=== PATIENT | female | born 1935 | race Caucasian/White ===

== ENCOUNTER → 2017-07-19 | Outpatient (CLI) | payer MEDICARE ==
--- NOTE | 2017-07-19 23:03 | MR ---
EXAMINATION TYPE: MR brain wo con DATE OF EXAM: 07/19/2017 COMPARISON: NONE HISTORY: Dementia without behavioral disturbance per order. Additional symptoms of headache, dizzines s, and loss of balance per order. TECHNIQUE: Multiplanar, multisequence imaging of the brain and brainstem is performed without IV cont rast. FINDINGS: Diffusion weighted images demonstrate no evidence of a recent infarct or other diffusion abnormality. There is no worrisome extra-axial fluid collection. There is ventricular and sulcal prominence consis tent with fairly moderate diffuse cerebral atrophy. There are focal confluent areas of T2 hyperintens ity seen throughout the deep and periventricular white matter. Lesions are most likely an basis of pr oduct of the proximal vessel ischemic change in patient of this age. Suspect old lacunar infarct left cerebellar hemisphere on axial image 6 Midline structures demonstrate normal morphology. The craniocervical junction appears within normal limits. Normal vascular flow voids are present. The visualized sinuses are clear and the globes are i ntact. 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
== END | disposition home or self-care (01) ==
LOC: RADMRIMAIN 15:52
PROVIDERS: ATTEND Family Medicine
DX: G31.9 Degenerative disease of nervous system, unspecified (principal); I67.82 Cerebral ischemia; F03.90 Unspecified dementia, unspecified severity, without behavioral disturbance, psychotic disturbance, mood disturbance, and anxiety
CPT/HCPCS: 70551

== ENCOUNTER → 2017-10-06 | Outpatient (CLI) | payer MEDICARE ==
--- NOTE | 2017-10-07 11:07 | US ---
EXAMINATION TYPE: US thyroid st tissue head/neck DATE OF EXAM: 10/06/2017 COMPARISON: US 09/29/2014 CLINICAL HISTORY: E21.3 Hyperparathyroidism. GLAND SIZE: Right Lobe: 5.3 x 3.2 x 2.9 cm Overall Parenchyma: heterogenous Left Lobe: 8.0 x 3.4 x 3.1cm Overall Parenchyma: heterogeneous Isthmus Thickness: 1.1 cm NODULES RIGHT: # of nodules measured on right: 2 largest are measured as multiple thyroid nodules and too n umerous to count 1. 1.8 X 2.3 x 1.6 cm hypoechoic mixed nodule at the lower pole with poorly defined margins; . Thi s nodule is wider than tall and shows intranodular vascularity. Prior size: 1.8 x 1.0 x 1.8 cm 2. 2.1 X 1.8 x 1.9 cm hypoechoic mixed nodule at the upper pole with irregular margins; with a soft tissue rim outside the calcification. This nodule is taller than wide and shows no intranodular vasc ularity. Prior size: not seen LEFT: # of nodules measured on left: 2 largest of multiple nodules 1. 1.6 X 2.0 x 2.1 cm hypoechoic mixed nodule at the lower pole with poorly defined margins; presen t with microcalcifications. This nodule is taller than wide and shows intranodular vascularity. Prior size: none measured 2. 1.7 X 1.5 x 0.9 cm hypoechoic mixed nodule at the upper pole with well-defined margins. This nodu le is wider than tall and shows intranodular vascularity. Prior size: none measured ISTHMUS: # of nodules measured in the isthmus: 0 Bilateral neck scanned, no evidence of lymphadenopathy. Enlarged thyroid gland bilaterally. Possible right inferior solid parathyroid nodule = 1.4 x 1.0 x 1.3cm IMPRESSION: Nonspecific thyroid nodularity as discussed above. Possible right parathyroid nodule. The need to bi opsy should be made on a clinical basis.
== END | disposition home or self-care (01) ==
LOC: RADUSWWP 16:46
PROVIDERS: ATTEND Family Medicine
DX: E21.3 Hyperparathyroidism, unspecified (principal)
CPT/HCPCS: 76536

== ENCOUNTER → 2017-11-13 | Outpatient (CLI) | payer MEDICARE ==
--- NOTE | 2017-11-13 15:46 | NM ---
EXAMINATION TYPE: NM parathyroid w/spect DATE OF EXAM: 11/13/2017 COMPARISON: Thyroid ultrasound October 06, 2017 HISTORY: Increased parathyroid hormone. History of adenoma. TECHNIQUE: Following administration of 24.9 mCi Tc99m Sestamibi. Anterior projection images of the neck and ches t were obtained 10 minutes and 3 hours post injection. SPECT images of the neck and chest were obtai mavis and reconstructed in three axes. FINDINGS: Thyroid tracer washout: Delayed images demonstrate near-complete tracer washout from the thyroid. Parathyroid uptake: None. The two-hour delayed images do not demonstrate any focal abnormal persisten t uptake in the region of the parathyroid glands to suggest parathyroid adenoma to correlate with rec ent ultrasound. Normal uptake: There is physiological tracer uptake in the bilateral salivary glands. IMPRESSION: Normal parathyroid imaging study. No evidence for suspicious mediastinal uptake to suggest mediastina l parathyroid adenoma
== END | disposition home or self-care (01) ==
LOC: RADNMMAIN 11:10
PROVIDERS: ATTEND Otolaryngology
DX: D35.1 Benign neoplasm of parathyroid gland (principal); E21.3 Hyperparathyroidism, unspecified
CPT/HCPCS: 78071; A9500

== ENCOUNTER 2017-11-17 12:29 | Day surgery (SDC) | payer MEDICARE ==
[2017-11-17] MEDS ORDERED: ALPRAZolam 0.25 MG TAB PO STA (13:07)
[2017-11-17 13:14] VITALS: TEMP 98.1
[2017-11-17 13:40] VITALS: PULSE 70; RESP 16
--- NOTE | 2017-11-17 15:38 | US ---
EXAMINATION TYPE: US FNA thyroid DATE OF EXAM: 11/17/2017 COMPARISON: NONE HISTORY: Thyroid nodule. Maximal barrier technique was utilized. After informed consent, skin overlying the lesion was locali zed with ultrasound and the overlying skin prepped and draped. Ultrasound was utilized using sterile technique. Lidocaine was used for local anesthesia. 4 passes with a 25-gauge needle were made into th e left lower pole nodule and aspirated specimen was submitted to cytology. Following the procedure h emostasis achieved. No immediate complication. The patient discharged in stable condition. IMPRESSION: STATUS POST ULTRASOUND GUIDED FINE NEEDLE ASPIRATION OF LEFT LOWER POLE THYROID NODULE, P ATHOLOGY IS PENDING. THIS PROCEDURE WAS PERFORMED BY THE UNDERSIGNED.
--- NOTE | 2017-11-17 15:38 | US ---
EXAMINATION TYPE: US FNA thyroid DATE OF EXAM: 11/17/2017 COMPARISON: NONE HISTORY: Thyroid nodule. Maximal barrier technique was utilized. After informed consent, skin overlying the lesion was locali zed with ultrasound and the overlying skin prepped and draped. Ultrasound was utilized using sterile technique. Lidocaine was used for local anesthesia. 4 passes with a 25-gauge needle were made into th e left upper pole nodule and aspirated specimen was submitted to cytology. Following the procedure h emostasis achieved. No immediate complication. The patient discharged in stable condition. IMPRESSION: STATUS POST ULTRASOUND GUIDED FINE NEEDLE ASPIRATION OF LEFT UPPER POLE THYROID NODULE, P ATHOLOGY IS PENDING. THIS PROCEDURE WAS PERFORMED BY THE UNDERSIGNED.
--- NOTE | 2017-11-17 15:39 | US ---
EXAMINATION TYPE: US FNA thyroid DATE OF EXAM: 11/17/2017 COMPARISON: NONE HISTORY: Thyroid nodule. Maximal barrier technique was utilized. After informed consent, skin overlying the lesion was locali zed with ultrasound and the overlying skin prepped and draped. Ultrasound was utilized using sterile technique. Lidocaine was used for local anesthesia. 1 pass with a 25-gauge needle was made into the r ight lower pole nodule and aspirated specimen was submitted to cytology. Following the procedure hem ostasis achieved. No immediate complication. The patient discharged in stable condition. IMPRESSION: STATUS POST ULTRASOUND GUIDED FINE NEEDLE ASPIRATION OF RIGHT LOWER POLE THYROID NODULE, PATHOLOGY IS PENDING. THIS PROCEDURE WAS PERFORMED BY THE UNDERSIGNED.
--- NOTE | 2017-11-17 15:40 | US ---
EXAMINATION TYPE: US FNA thyroid DATE OF EXAM: 11/17/2017 COMPARISON: NONE HISTORY: Thyroid nodule. Maximal barrier technique was utilized. After informed consent, skin overlying the lesion was locali zed with ultrasound and the overlying skin prepped and draped. Ultrasound was utilized using sterile technique. Lidocaine was used for local anesthesia. Four passes with a 25-gauge needle were made into the right upper pole nodule and aspirated specimen was submitted to cytology. Following the procedu re hemostasis achieved. No immediate complication. The patient discharged in stable condition. IMPRESSION: STATUS POST ULTRASOUND GUIDED FINE NEEDLE ASPIRATION OF RIGHT UPPER POLE THYROID NODULE, PATHOLOGY IS PENDING. THIS PROCEDURE WAS PERFORMED BY THE UNDERSIGNED.
[2017-11-17 15:52] VITALS: BP 139/70
== END 2017-11-17 14:50 | disposition home or self-care (01) ==
LOC: RADPROMAIN 12:29
PROVIDERS: ATTEND Otolaryngology
DX: E04.1 Nontoxic single thyroid nodule (principal)
CPT/HCPCS: 10022; 76942; 88173; 88305

== ENCOUNTER → 2018-05-16 | Outpatient (CLI) | payer MEDICARE ==
--- NOTE | 2018-05-16 14:10 | US ---
EXAMINATION TYPE: US thyroid st tissue head/neck DATE OF EXAM: 05/16/2018 COMPARISON: NONE CLINICAL HISTORY: E04.1 Thyroid Nodule. Follow up thyroid nodules GLAND SIZE: Right Lobe: 7.3 x 3.5 x 3.5 cm Overall Parenchyma: heterogenous Left Lobe: 7.0 x 3.3 x 3.2 cm Overall Parenchyma: heterogeneous Isthmus Thickness: 0.5 cm NODULES RIGHT: # of nodules measured on right: 1. 2.3 X 2.0 x 2.4 cm mixed nodule at the lower pole with well-defined margins; . This nodule is w ider than tall and shows intranodular vascularity. Prior size: 1.8 x 2.3 x 1.6 cm 2. 2.4 X 1.5 x 1.8 cm mixed nodule at the upper pole with poorly defined margins; . This nodule is wider than tall and shows . Prior size: 2.1 x 1.9 x 1.8 cm LEFT: # of nodules measured on left: 1. 2.2 X 2.0 x 2.2 cm mixed nodule at the mid pole with poorly defined margins; . This nodule is w ider than tall and shows intranodular vascularity. Prior size: 1.6 x 2.0 x 2.1 cm 2. 2.1 X 0.9 x 1.9 cm hypoechoic nodule at the upper pole with well-defined margins; . This nodule is wider than tall and shows intranodular vascularity. Prior size: 1.7 x 1.5 x 0.9 cm ISTHMUS: # of nodules measured in the isthmus: Bilateral neck scanned, no evidence of lymphadenopathy. Enlarged heterogeneous thyroid gland. Multiple nodules noted bilaterally. Largest 2 measured bilatera lly. IMPRESSION: 1. Multinodular goiter. 2. Largest nodules measured have increased slightly in size over the interval as discussed above.
== END | disposition home or self-care (01) ==
LOC: RADUSWWP 12:50
PROVIDERS: ATTEND Family Medicine
DX: E04.2 Nontoxic multinodular goiter (principal)
CPT/HCPCS: 76536

== ENCOUNTER 2020-07-04 17:39 | Observation (INO) | payer MEDICARE ==
[2020-07-04] MEDS ORDERED: SODIUM CHLORIDE 0.9% 500 ML 500 ML IV STA (18:12)
--- NOTE | 2020-07-04 18:56 | ED ---
General Adult HPI - General Chief complaint: Weakness Stated complaint: weak/vomiting Time Seen by Provider: 07/04/20 17:56 Source: patient, RN notes reviewed, old records reviewed Mode of arrival: wheelchair Limitations: no limitations - History of Present Illness Initial comments: 84-year-old female history of dementia presenting with increased confusion, generalized weakness over the past 2 weeks. She's been incontinent of urine which is new for this patient. There is concern for UTI. There is no reported fever. No cough. She has been drinking but has had a poor appetite. She had a normal bowel movement yesterday. No diarrhea. No pain complaints according to her who is able to provide the majority of the history. - Related Data Home Medications Medication Instructions Recorded Confirmed Aspirin [Adult Low Dose Aspirin EC] 81 mg PO DAILY 11/15/17 11/15/17 Donepezil [Aricept] 10 mg PO HS 11/15/17 11/17/17 Magnesium Oxide [Mehta] 500 mg PO DAILY 11/15/17 11/17/17 Memantine [Namenda] 10 mg PO BID 11/15/17 11/17/17 Multivitamin [Multivitamins Adult 2 each PO DAILY 11/15/17 11/17/17 Gummies] Allergies Allergy/AdvReac Type Severity Reaction Status Date / Time ciprofloxacin [From Cipro] Allergy Nausea & Verified 07/04/20 19:30 Vomiting Review of Systems ROS Statement: Those systems with pertinent positive or pertinent negative responses have been documented in the HPI. ROS Other: All systems not noted in ROS Statement are negative. Past Medical History Past Medical History: Dementia, Memory Impairment, Osteoarthritis (OA) History of Any Multi-Drug Resistant Organisms: None Reported Past Surgical History: Orthopedic Surgery Additional Past Surgical History / Comment(s): HIP SURGERY Past Psychological History: No Psychological Hx Reported Smoking Status: Never smoker Past Alcohol Use History: None Reported Past Drug Use History: None Reported General Exam Limitations: no limitations General appearance: alert Head exam: Present: atraumatic, normocephalic Eye exam: Present: normal appearance, PERRL ENT exam: Present: mucous membranes dry Neck exam: Present: normal inspection. Absent: tenderness Respiratory exam: Present: rhonchi, decreased breath sounds. Absent: respiratory distress, wheezes Cardiovascular Exam: Present: regular rate, normal rhythm GI/Abdominal exam: Present: soft, distended. Absent: tenderness, guarding, rebound Extremities exam: Present: normal inspection, normal capillary refill. Absent: calf tenderness Neurological exam: Present: alert. Absent: oriented X3 Skin exam: Present: warm, dry, intact Course Vital Signs 07/04/20 07/04/20 17:42 18:08 Temperature 94.4 F L 97 F L Pulse Rate 93 Respiratory 16 Rate Blood Pressure 137/96 O2 Sat by Pulse 92 L Oximetry EKG Findings - EKG Comments: EKG Findings:: EKG: Normal sinus rhythm, artifact throughout the EKG. There is no ST segment elevation, rate of 93, LA interval 154, QRS duration 78, QTC 412 Medical Decision Making - Medical Decision Making 84-year-old female increased generalized weakness, confusion, urinary incontinence with concern for UTI. Workup reveals a mildly elevated white blood cell count, stable hemoglobin, she has several Abnormalities including hyperkalemia 5.5, calcium is 11.8, creatinine 1.61 with no baseline. I suggest these are all related to dehydration. Chest x-rays negative for focal pneumonia. Urinalysis showing greater than 182 white blood cells, cloudy turbid urine. She started on IV fluids, IV antibiotics. She will be admitted for UTI, dehydration, altered mental status. Case discussed with Dr. Herring - Lab Data Result diagrams: 07/04/20 19:04 07/04/20 19:04 Lab Results 07/04/20 07/04/20 07/04/20 Range/Units 19:04 19:04 19:04 WBC 11.1 H (3.8-10.6) k/uL RBC 4.81 (3.80-5.40) m/uL Hgb 14.5 (11.4-16.0) gm/dL Hct 43.9 (34.0-46.0) % MCV 91.3 (80.0-100.0) fL MCH 30.1 (25.0-35.0) pg MCHC 33.0 (31.0-37.0) g/dL RDW 12.6 (11.5-15.5) % Plt Count 382 (150-450) k/uL MPV 6.9 Neutrophils % 79 % Lymphocytes % 12 % Monocytes % 6 % Eosinophils % 1 % Basophils % 1 % Neutrophils # 8.8 H (1.3-7.7) k/uL Lymphocytes # 1.3 (1.0-4.8) k/uL Monocytes # 0.7 (0-1.0) k/uL Eosinophils # 0.1 (0-0.7) k/uL Basophils # 0.1 (0-0.2) k/uL PT 9.7 (9.0-12.0) sec INR 0.9 (<1.2) APTT 20.1 L (22.0-30.0) sec Sodium (137-145) mmol/L Potassium (3.5-5.1) mmol/L Chloride (98-107) mmol/L Carbon Dioxide (22-30) mmol/L Anion Gap mmol/L BUN (7-17) mg/dL Creatinine (0.52-1.04) mg/dL Est GFR (CKD-EPI)AfAm (>60 ml/min/1.73 sqM) Est GFR (CKD-EPI)NonAf (>60 ml/min/1.73 sqM) Glucose (74-99) mg/dL Plasma Lactic Acid Qamar (0.7-2.0) mmol/L Calcium (8.4-10.2) mg/dL Magnesium (1.6-2.3) mg/dL Total Bilirubin (0.2-1.3) mg/dL AST (14-36) U/L ALT (4-34) U/L Alkaline Phosphatase (38-126) U/L Total Protein (6.3-8.2) g/dL Albumin (3.5-5.0) g/dL Urine Color Yellow Urine Appearance Turbid H (Clear) Urine pH 8.0 (5.0-8.0) Ur Specific [place] 1.013 (1.001-1.035) Urine Protein 2+ H (Negative) Urine Glucose (UA) Negative (Negative) Urine Ketones Negative (Negative) Urine Blood Moderate H (Negative) Urine Nitrite Negative (Negative) Urine Bilirubin Negative (Negative) Urine Urobilinogen <2.0 (<2.0) mg/dL Ur Leukocyte Esterase Large H (Negative) Urine RBC 48 H (0-5) /hpf Urine WBC >182 H (0-5) /hpf Urine WBC Clumps Many H (None) /hpf Urine Bacteria Few H (None) /hpf Urine Yeast (Budding) Moderate H (None) /hpf 07/04/20 07/04/20 Range/Units 19:04 19:04 WBC (3.8-10.6) k/uL RBC (3.80-5.40) m/uL Hgb (11.4-16.0) gm/dL Hct (34.0-46.0) % MCV (80.0-100.0) fL MCH (25.0-35.0) pg MCHC (31.0-37.0) g/dL RDW (11.5-15.5) % Plt Count (150-450) k/uL MPV Neutrophils % % Lymphocytes % % Monocytes % % Eosinophils % % Basophils % % Neutrophils # (1.3-7.7) k/uL Lymphocytes # (1.0-4.8) k/uL Monocytes # (0-1.0) k/uL Eosinophils # (0-0.7) k/uL Basophils # (0-0.2) k/uL PT (9.0-12.0) sec INR (<1.2) APTT (22.0-30.0) sec Sodium 132 L (137-145) mmol/L Potassium 5.5 H (3.5-5.1) mmol/L Chloride 98 (98-107) mmol/L Carbon Dioxide 21 L (22-30) mmol/L Anion Gap 13 mmol/L BUN 52 H (7-17) mg/dL Creatinine 1.61 H (0.52-1.04) mg/dL Est GFR (CKD-EPI)AfAm 34 (>60 ml/min/1.73 sqM) Est GFR (CKD-EPI)NonAf 30 (>60 ml/min/1.73 sqM) Glucose 126 H (74-99) mg/dL Plasma Lactic Acid Qamar 2.0 (0.7-2.0) mmol/L Calcium 11.8 H (8.4-10.2) mg/dL Magnesium 2.4 H (1.6-2.3) mg/dL Total Bilirubin 0.7 (0.2-1.3) mg/dL AST 31 (14-36) U/L ALT 28 (4-34) U/L Alkaline Phosphatase 99 (38-126) U/L Total Protein 8.1 (6.3-8.2) g/dL Albumin 4.0 (3.5-5.0) g/dL Urine Color Urine Appearance (Clear) Urine pH (5.0-8.0) Ur Specific [place] (1.001-1.035) Urine Protein (Negative) Urine Glucose (UA) (Negative) Urine Ketones (Negative) Urine Blood (Negative) Urine Nitrite (Negative) Urine Bilirubin (Negative) Urine Urobilinogen (<2.0) mg/dL Ur Leukocyte Esterase (Negative) Urine RBC (0-5) /hpf Urine WBC (0-5) /hpf Urine WBC Clumps (None) /hpf Urine Bacteria (None) /hpf Urine Yeast (Budding) (None) /hpf Disposition Clinical Impression: Dehydration, EDUARDA (acute kidney injury), UTI (urinary tract infection) Disposition: ADMITTED IP TO THIS [facility] Condition: Stable Is patient prescribed a controlled substance at d/c from ED?: No Referrals: Jong Solo MD [Primary Care Provider] - 1-2 days Decision to Admit Reason: Admit from EC Decision Date: 07/04/20 Decision Time: 19:40
[2020-07-04 19:11] LABS: Basophils # (A) 0.1 k/uL (0-0.2); Basophils % (A) 1 %; Eosinophils # (A) 0.1 k/uL (0-0.7); Eosinophils % (A) 1 %; HCT 43.9 % (34.0-46.0); HGB 14.5 gm/dL (11.4-16.0); Lymphocytes # (A) 1.3 k/uL (1.0-4.8); Lymphocytes % (A) 12 %; MCH 30.1 pg (25.0-35.0); MCV 91.3 fL (80.0-100.0); Mean Platelet Volume 6.9; Monocytes # (A) 0.7 k/uL (0-1.0); Monocytes % (A) 6 %; Neutrophils # (A) 8.8 k/uL (1.3-7.7); Neutrophils % (A) 79 %; Platelet Count 382 k/uL (150-450); RBC 4.81 m/uL (3.80-5.40); RDW 12.6 % (11.5-15.5); WBC 11.1 k/uL (3.8-10.6)
[2020-07-04 19:15] LABS: Appearance,Urine Turbid (Clear); Bacteria,Urine Few /hpf; Bilirubin,Urine Negative (Negative); Blood,Urine Moderate (Negative); Budding Yeast,Urine Moderate /hpf; Color,Urine Yellow; Glucose,Urine (UA) Negative (Negative); Ketones,Urine Negative (Negative); Leukocyte Esterase,Urine Large (Negative); Nitrite,Urine Negative (Negative); Protein,Urine 2+ (Negative); RBC,Urine 48 /hpf (0-5); Specific Gravity,Urine 1.013 (1.001-1.035); Urobilinogen,Urine <2.0 mg/dL (<2.0); WBC,Urine >182 /hpf (0-5)
[2020-07-04] MEDS ORDERED: cefTRIAXone IN SWFI 1,000 MG/10 ML SYRINGE IVP STA (19:20)
[2020-07-04] MEDS ORDERED: SODIUM CHLORIDE 0.9% 500 ML 500 ML IV ONE (19:20)
[2020-07-04 19:21] LABS: Calcium 11.8 mg/dL (8.4-10.2); Magnesium 2.4 mg/dL (1.6-2.3); Potassium 5.5 mmol/L (3.5-5.1); Total Bilirubin 0.7 mg/dL (0.2-1.3); Total Protein 8.1 g/dL (6.3-8.2)
--- NOTE | 2020-07-04 19:26 | XR ---
EXAMINATION TYPE: XR chest 2V DATE OF EXAM: 07/04/2020 COMPARISON: 11/30/2009 HISTORY: Weakness TECHNIQUE: 2 views FINDINGS: There is no heart failure nor confluent pneumonic infiltrate. Costophrenic angles are clear . Thoracic aorta is atheromatous. There is spurring in the thoracic spine. IMPRESSION: No active cardiopulmonary disease. Normal heart. No change.
[2020-07-04 19:30] LABS: INR 0.9 (<1.2); Prothrombin Time 9.7 sec (9.0-12.0)
[2020-07-04 19:31] LABS: Partial Thromboplastin Time 20.1 sec (22.0-30.0)
[2020-07-04] MEDS ORDERED: NALOXONE 0.4 MG/ML 1 ML VIAL IV PRN (19:36)
[2020-07-04] MEDS ORDERED: MEMANTINE 10 MG TAB PO PRN (20:56)
[2020-07-04] MEDS ORDERED: DONEPEZIL 10 MG TAB PO PRN (20:56)
--- NOTE | 2020-07-04 20:57 | P.HPIM ---
History of Present Illness H&P Date: 07/04/20 The patient is an 84-year-old female with a PMH of dementia who was brought into the emergency room with her due to worsening confusion and weakness over the past 2 weeks. The history was obtained from the at the bedside (Ed Jan) as the patient was nonverbal and not answering any questions. notes that the patient lives with him at home and that they have been getting help from 2 of her children. He reports that over the past 2 years, the patient's dementia has gradually worsened. Over the past 2 weeks however, it took a significant turn for the worse when she became progressively weaker and was no longer able to assist and them changing her or even able to get around the house. She normally is able to ambulate with a walker and answer some questions, although does not recognize her family members and has difficulty feeding herself. The family did note that her urine appeared more cloudy with small amounts of blood over the past 1 week and that during this duration, she has also stopped eating or drinking. The notes that he has a hard time getting her to even drink a single bottle of water throughout the day. The patient underwent an extensive evaluation in the emergency room which was all reviewed. A chest x-ray was unremarkable with EKG showing a normal sinus rhythm at 93 bpm with right ventricular conduction delay noted. Laboratory evaluation was remarkable for a UA consistent with UTI, leukocytosis of 11.1, sodium 132, potassium 5.5, CO2 21, BUN 52, creatinine 1.61, lactic acid 2.0, calcium 11.8, and magnesium of 2.4 Review of Systems ROS unobtainable: due to mental status Past Medical History Past Medical History: Dementia, Memory Impairment, Osteoarthritis (OA) History of Any Multi-Drug Resistant Organisms: None Reported Past Surgical History: Orthopedic Surgery Additional Past Surgical History / Comment(s): HIP SURGERY Past Psychological History: No Psychological Hx Reported Smoking Status: Never smoker Past Alcohol Use History: None Reported Past Drug Use History: None Reported Medications and Allergies Home Medications Medication Instructions Recorded Confirmed Type Aspirin [Adult Low Dose Aspirin EC] 81 mg PO DAILY 11/15/17 07/04/20 History Donepezil [Aricept] 10 mg PO HS PRN 11/15/17 07/04/20 History Memantine [Namenda] 10 mg PO BID PRN 11/15/17 07/04/20 History Multivitamin [Multivitamins Adult 2 tab PO DAILY 11/15/17 07/04/20 History Gummies] Alendronate Sodium [Fosamax] 70 mg PO SA 07/04/20 07/04/20 History Calcium 1200mg/ Vitamin D 25mcg 1 tab PO DAILY 07/04/20 07/04/20 History Cyanocobalamin (Vitamin B-12) 1,000 mcg PO DAILY 07/04/20 07/04/20 History [Vitamin B-12] Allergies Allergy/AdvReac Type Severity Reaction Status Date / Time ciprofloxacin [From Cipro] Allergy Nausea & Verified 07/04/20 19:30 Vomiting Physical Exam Vitals: Vital Signs Temp Pulse Resp BP Pulse Ox 07/04/20 20:04 97 16 123/88 99 07/04/20 18:08 97 F L 07/04/20 17:42 94.4 F L 93 16 137/96 92 L Intake and Output 07/04/20 07/04/20 07/04/20 06:59 14:59 22:59 Other: Weight 63.503 kg General: non toxic, no distress, appears at stated age, normal weight Derm: no unusual rashes/lesions no unusual ecchymoses, warm, dry Head: atraumatic, normocephalic, symmetric Eyes: EOMI, no lid lag, anicteric sclera, pupils equal round reactive to light ENT: Nose and ears atraumatic, no thrush, no pharyngeal erythema Neck: No thyromegaly, no cervical lymphadenopathy, trachea midline, supple Mouth: no lip lesion, mucus membranes dry Cardiovascular: S1S2 reg, no murmur, positive posterior tibial pulse bilateral, no edema, capillary refill less than 2 seconds Lungs: CTA bilateral, no rhonchi, no rales , no accessory muscle use Abdominal: soft, nontender to palpation, no guarding, no appreciable organomegaly, normal bowel sounds Ext: no gross muscle atrophy, moving all extremities, no contractures Neuro: Unable to perform as patient not following directions, moving all extremities and no obvious focal deficits noted, no facial asymmetry noted Psych: Not answering any questions and not making eye contact Results CBC & Chem 7: 07/04/20 19:04 07/04/20 19:04 Labs: Abnormal Lab Results - Last 24 Hours (Table) 0107/04/20 07/04/20 Range/Units 19:04 19:04 19:04 WBC 11.1 H (3.8-10.6) k/uL Neutrophils # 8.8 H (1.3-7.7) k/uL APTT 20.1 L (22.0-30.0) sec Sodium (137-145) mmol/L Potassium (3.5-5.1) mmol/L Carbon Dioxide (22-30) mmol/L BUN (7-17) mg/dL Creatinine (0.52-1.04) mg/dL Glucose (74-99) mg/dL Calcium (8.4-10.2) mg/dL Magnesium (1.6-2.3) mg/dL Urine Appearance Turbid H (Clear) Urine Protein 2+ H (Negative) Urine Blood Moderate H (Negative) Ur Leukocyte Esterase Large H (Negative) Urine RBC 48 H (0-5) /hpf Urine WBC >182 H (0-5) /hpf Urine WBC Clumps Many H (None) /hpf Urine Bacteria Few H (None) /hpf Urine Yeast (Budding) Moderate H (None) /hpf 07/04/20 Range/Units 19:04 WBC (3.8-10.6) k/uL Neutrophils # (1.3-7.7) k/uL APTT (22.0-30.0) sec Sodium 132 L (137-145) mmol/L Potassium 5.5 H (3.5-5.1) mmol/L Carbon Dioxide 21 L (22-30) mmol/L BUN 52 H (7-17) mg/dL Creatinine 1.61 H (0.52-1.04) mg/dL Glucose 126 H (74-99) mg/dL Calcium 11.8 H (8.4-10.2) mg/dL Magnesium 2.4 H (1.6-2.3) mg/dL Urine Appearance (Clear) Urine Protein (Negative) Urine Blood (Negative) Ur Leukocyte Esterase (Negative) Urine RBC (0-5) /hpf Urine WBC (0-5) /hpf Urine WBC Clumps (None) /hpf Urine Bacteria (None) /hpf Urine Yeast (Budding) (None) /hpf Assessment and Plan Plan: Toxic metabolic encephalopathy in setting of UTI with underlying dementia -Continue with ceftriaxone -Urine culture -IV fluids - notes that the family is hoping that she will go back to her baseline as she may be able to assist with some of her ADLs so that she may return home -PT consult Hyponatremia -Likely due to poor oral intake -Continue with IV fluids -Swallow evaluation Kidney injury, acute versus chronic -Baseline not available -Continue IV fluids -Monitor for now Hypercalcemia -Likely due to dehydration -Continue with IV fluids DVT prophylaxis -Heparin subq The patient is admitted with an anticipated greater than 2 midnight stay for evaluation of AMS CODE STATUS: Full Code (Discussed the patient's goals of care with the . The patient never previously discussed her wishes with the family. Explained in great detail regarding CPR and different forms of life-support. The noted that she "would have wanted to live" and wishes for her to be a Full-Code) Discussed with: Patient Anticipated discharge date: 2-[address]: Home A total of 40 minutes was spent on the care of this complex patient more than 50% of the time was spent in counseling and care coordination.
[2020-07-04] MEDS: HEPARIN SODIUM,PORCINE 5,000 UNIT/ML 1 ML VIAL SQ SCH (23:12)
[2020-07-04] MEDS: SODIUM CHLORIDE 0.9% 1,000 ML IV SCH (23:13)
[2020-07-05] MEDS: HEPARIN SODIUM,PORCINE 5,000 UNIT/ML 1 ML VIAL SQ SCH (04:51)
[2020-07-05 05:26] LABS: Basophils % (A) 1 %; Eosinophils # (A) 0.2 k/uL (0-0.7); Eosinophils % (A) 2 %; HCT 39.9 % (34.0-46.0); HGB 12.6 gm/dL (11.4-16.0); Hypochromasia Slight; Lymphocytes # (A) 1.4 k/uL (1.0-4.8); Lymphocytes % (A) 19 %; MCH 29.7 pg (25.0-35.0); MCHC 31.5 g/dL (31.0-37.0); MCV 94.2 fL (80.0-100.0); Mean Platelet Volume 6.8; Monocytes # (A) 0.5 k/uL (0-1.0); Monocytes % (A) 7 %; Neutrophils # (A) 5.1 k/uL (1.3-7.7); Neutrophils % (A) 69 %; Platelet Count 291 k/uL (150-450); RBC 4.23 m/uL (3.80-5.40); RDW 12.4 % (11.5-15.5); WBC 7.4 k/uL (3.8-10.6)
[2020-07-05] MEDS: SODIUM CHLORIDE 0.9% 1,000 ML IV SCH ×2 (06:22→17:04)
[2020-07-05] MEDS ORDERED: HEPARIN SODIUM,PORCINE 5,000 UNIT/ML 1 ML VIAL SQ SCH (09:00)
[2020-07-05] MEDS ORDERED: ASPIRIN 81 MG PO SCH (09:00)
[2020-07-05 10:15] LABS: African American GFR (CKD) 40.5 (60.0-200.0); Albumin 3.5 g/dL (3.80-4.90); Albumin/Globulin Ratio 1.35 (1.60-3.17); BUN/Creat Ratio 32.14 Ratio (12.00-20.00); Calcium 9.8 mg/dL (8.7-10.3); Globulin 2.6 g/dL (1.6-3.3); Non-African American GFR(CKD) 34.9 (60.0-200.0); Potassium 4.7 mmol/L (3.5-5.5); Total Bilirubin 0.2 mg/dL (0.3-1.2); Total Protein 6.1 g/dL (6.2-8.2)
[2020-07-05 11:02] VITALS: BMI 22.6
--- NOTE | 2020-07-05 11:04 | P.PN ---
Subjective Progress Note Date: 07/05/20 Patient was resting today when I saw her. She was hardly arousable. Her nurse told me that while ago she was awake and talking to her. Patient has advanced dementia and does not recognize her surroundings. Apparently she was found to have urinary retention last night and a [place] catheter was inserted by nursing staff resulting with significant hematuria. Her nurse told me that she had large blood clots noted in the Gal[place] catheter. Objective - Vital Signs Vital signs: Vital Signs Temp 97.5 F L 07/05/20 05:29 Pulse 77 07/05/20 05:29 Resp 18 07/05/20 05:29 BP 136/83 07/05/20 05:29 Pulse Ox 98 07/05/20 05:29 Intake & Output 07/04/20 07/05/20 07/05/20 18:59 06:59 18:59 Intake Total 700 Output Total 1000 Balance -300 Weight 63.503 kg 63.503 kg Intake: Intake, IV Titration 700 Amount Sodium Chloride 0.9% 1, 700 000 ml @ 100 mls/hr IV . Q10H [facility] Rx#:[id number] Output: Urine 1000 Uretheral (Gal[place]) 1000 Other: Voiding Method Diaper Diaper Incontinent Incontinent # Voids 1 - Exam General: The patient is lethargic Eye: there is normal conjunctiva bilaterally. Neck: The neck is supple, there is no JVD. Cardiovascular: Normal S1-S2, no S3-S4, no murmurs. Respiratory: Lungs clear to auscultation bilaterally Gastrointestinal: Abdomen is soft, nontender Musculoskeletal: There is no pedal edema. Skin: Skin is warm and dry - Labs CBC & Chem 7: 07/05/20 05:00 07/05/20 05:00 Labs: Abnormal Lab Results - Last 24 Hours (Table) 07/04/20 07/04/20 07/04/20 Range/Units 19:04 19:04 19:04 WBC 11.1 H (3.8-10.6) k/uL Neutrophils # 8.8 H (1.3-7.7) k/uL APTT 20.1 L (22.0-30.0) sec Sodium (137-145) mmol/L Potassium (3.5-5.1) mmol/L Carbon Dioxide (22-30) mmol/L BUN (7-17) mg/dL Creatinine (0.52-1.04) mg/dL Est GFR (CKD-EPI)AfAm (60.0-200.0) Est GFR (CKD-EPI)NonAf (60.0-200.0) BUN/Creatinine Ratio (12.00-20.00) Ratio Glucose (74-99) mg/dL Calcium (8.4-10.2) mg/dL Magnesium (1.6-2.3) mg/dL Total Bilirubin (0.3-1.2) mg/dL Total Protein (6.2-8.2) g/dL Albumin (3.80-4.90) g/dL Albumin/Globulin Ratio (1.60-3.17) g/dL Urine Appearance Turbid H (Clear) Urine Protein 2+ H (Negative) Urine Blood Moderate H (Negative) Ur Leukocyte Esterase Large H (Negative) Urine RBC 48 H (0-5) /hpf Urine WBC >182 H (0-5) /hpf Urine WBC Clumps Many H (None) /hpf Urine Bacteria Few H (None) /hpf Urine Yeast (Budding) Moderate H (None) /hpf 07/04/20 07/05/20 Range/Units 19:04 05:00 WBC (3.8-10.6) k/uL Neutrophils # (1.3-7.7) k/uL APTT (22.0-30.0) sec Sodium 132 L (137-145) mmol/L Potassium 5.5 H (3.5-5.1) mmol/L Carbon Dioxide 21 L 18.0 L (22-30) mmol/L BUN 52 H 45.0 H (7-17) mg/dL Creatinine 1.61 H (0.52-1.04) mg/dL Est GFR (CKD-EPI)AfAm 40.5 L (60.0-200.0) Est GFR (CKD-EPI)NonAf 34.9 L (60.0-200.0) BUN/Creatinine Ratio 32.14 H (12.00-20.00) Ratio Glucose 126 H (74-99) mg/dL Calcium 11.8 H (8.4-10.2) mg/dL Magnesium 2.4 H (1.6-2.3) mg/dL Total Bilirubin 0.2 L (0.3-1.2) mg/dL Total Protein 6.1 L (6.2-8.2) g/dL Albumin 3.50 L (3.80-4.90) g/dL Albumin/Globulin Ratio 1.35 L (1.60-3.17) g/dL Urine Appearance (Clear) Urine Protein (Negative) Urine Blood (Negative) Ur Leukocyte Esterase (Negative) Urine RBC (0-5) /hpf Urine WBC (0-5) /hpf Urine WBC Clumps (None) /hpf Urine Bacteria (None) /hpf Urine Yeast (Budding) (None) /hpf Microbiology - Last 24 Hours (Table) 07/04/20 19:04 Urine Culture - Preliminary Urine,Voided Assessment and Plan Assessment: This is a 84-year-old female with past medical history noted below who presented to the emergency room with altered mental status. Patient was evaluated in the ER and admitted to the hospital for further management of her medical problems noted below. Toxic metabolic encephalopathy in setting of UTI with underlying dementia -Continue with ceftriaxone -Urine culture pending Obstructive uropathy -With approximately 800 mL of urine noted on bladder scan. Status post [place] catheter insertion Hematuria -Secondary to traumatic [place] catheter insertion. Nursing staff noted large blood clots in the catheter. I would consult urology for further evaluation. Continue to monitor hemoglobin level. Hyponatremia -Received IV fluid hydration. Awaiting repeat lab work Kidney injury, acute versus chronic -Awaiting repeat lab work DVT prophylaxis -Heparin subq The patient is admitted with an anticipated greater than 2 midnight stay for evaluation of AMS CODE STATUS: Full Code (Discussed with the by admitting physician. The patient never previously discussed her wishes with the family. Explained in great detail regarding CPR and different forms of life-support. The noted that she "would have wanted to live" and wishes for her to be a Full-Code) Discussed with: Patient Anticipated discharge date: 2-[address]: Home A total of 40 minutes was spent on the care of this complex patient more than 50% of the time was spent in counseling and care coordination.
[2020-07-06 05:15] LABS: Basophils % (A) 1 %; Eosinophils # (A) 0.3 k/uL (0-0.7); Eosinophils % (A) 4 %; Lymphocytes # (A) 1.3 k/uL (1.0-4.8); Lymphocytes % (A) 18 %; MCH 29.8 pg (25.0-35.0); MCHC 32.5 g/dL (31.0-37.0); MCV 91.9 fL (80.0-100.0); Mean Platelet Volume 6.6; Monocytes # (A) 0.4 k/uL (0-1.0); Monocytes % (A) 5 %; Neutrophils # (A) 5.3 k/uL (1.3-7.7); Neutrophils % (A) 71 %; Platelet Count 258 k/uL (150-450); RBC 3.69 m/uL (3.80-5.40); RDW 12.6 % (11.5-15.5); WBC 7.4 k/uL (3.8-10.6)
[2020-07-06 08:43] LABS: African American GFR (CKD) 54.1 (60.0-200.0); BUN/Creat Ratio 25.45 Ratio (12.00-20.00); Calcium 8.9 mg/dL (8.7-10.3); Non-African American GFR(CKD) 46.7 (60.0-200.0); Potassium 3.7 mmol/L (3.5-5.5)
[2020-07-06] MEDS: SODIUM CHLORIDE 0.9% 1,000 ML IV SCH (11:13)
--- NOTE | 2020-07-06 12:44 | P.PN ---
Subjective Progress Note Date: 07/06/20 Patient is doing significantly better today. She is awake and alert. No acute events overnight reported by nursing staff. Hematuria resolved and urine noted in [place] bag was clear yellow Objective - Vital Signs Vital signs: Vital Signs Temp 97.9 F 07/06/20 04:28 Pulse 65 07/06/20 04:28 Resp 14 07/06/20 04:28 BP 159/62 07/06/20 04:28 Pulse Ox 98 07/06/20 04:28 Intake & Output 07/05/20 07/06/20 07/06/20 18:59 06:59 18:59 Intake Total 700 Output Total 450 500 Balance -450 200 Weight 63.503 kg Intake: Intake, IV Titration 500 Amount Sodium Chloride 0.9% 1, 450 000 ml @ 50 mls/hr IV . Q20H [facility] Rx#:[id number] cefTRIAXone 1 gm In 50 Sodium Chloride 0.9% 50 ml @ 100 mls/hr IVPB Q24H [facility] Rx#:[id number] Oral 200 Output: Urine 450 500 Uretheral ([place]) 500 Other: Voiding Method Diaper Indwelling Catheter Indwelling Catheter Incontinent # Bowel Movements 1 - Exam General: The patient is lethargic Eye: there is normal conjunctiva bilaterally. Neck: The neck is supple, there is no JVD. Cardiovascular: Normal S1-S2, no S3-S4, no murmurs. Respiratory: Lungs clear to auscultation bilaterally Gastrointestinal: Abdomen is soft, nontender Musculoskeletal: There is no pedal edema. Skin: Skin is warm and dry - Labs CBC & Chem 7: 07/06/20 04:58 07/06/20 04:58 Labs: Abnormal Lab Results - Last 24 Hours (Table) 07/06/20 07/06/20 Range/Units 04:58 04:58 RBC 3.69 L (3.80-5.40) m/uL Hgb 11.0 L (11.4-16.0) gm/dL Chloride 112 H (96-109) mmol/L BUN 28.0 H (9.0-27.0) mg/dL Est GFR (CKD-EPI)AfAm 54.1 L (60.0-200.0) Est GFR (CKD-EPI)NonAf 46.7 L (60.0-200.0) BUN/Creatinine Ratio 25.45 H (12.00-20.00) Ratio Microbiology - Last 24 Hours (Table) 07/04/20 19:04 Blood Culture - Preliminary Blood No Growth after 24 hours 07/04/20 19:04 Urine Culture - Preliminary Urine,Voided Gram Neg Bacilli Assessment and Plan Assessment: This is a 84-year-old female with past medical history noted below who presented to the emergency room with altered mental status. Patient was evaluated in the ER and admitted to the hospital for further management of her medical problems noted below. Toxic metabolic encephalopathy in setting of UTI with underlying dementia, resolved back to baseline Complicated urinary tract infection -Continue with ceftriaxone -Urine culture pending Acute kidney injury -Resolved with IV fluid hydration and bladder decompression Obstructive uropathy -With approximately 800 mL of urine noted on bladder scan. Status post [place] catheter insertion. Plan for voiding trial tomorrow Hematuria -Secondary to traumatic [place] catheter insertion. Now resolved Hyponatremia -Improved with IV fluid hydration DVT prophylaxis -Heparin subq CODE STATUS: Full Code (Discussed with the by admitting physician. The patient never previously discussed her wishes with the family. Explained in great detail regarding CPR and different forms of life-support. The noted that she "would have wanted to live" and wishes for her to be a Full-Code) Discussed with: Nursing staff Anticipated discharge date: Tomorrow Anticipated discharge place: Home versus shelter awaiting decision A total of 35 minutes was spent on the care of this complex patient more than 50% of the time was spent in counseling and care coordination.
--- NOTE | 2020-07-06 16:28 | P.GSCN ---
History of Present Illness Consult date: 07/06/20 Reason for Consult: Hematuria Requesting physician: Lenore Hernandez History of present illness: The patient is an 84-year-old female with a history of history of dementia. She was admitted with increased confusion and generalized weakness over the past 2 weeks. She's also been incontinent of urine, which is new for this patient. Hematuria has been noted, and there is concern of a UTI. Review of Systems ROS unobtainable: due to mental status - Constitutional Reports weakness, Denies chills, Denies fever - Genitourinary Genitourinary: Reports hematuria - Psychiatric Reports confusion Past Medical History Past Medical History: Dementia, Memory Impairment, Osteoarthritis (OA) History of Any Multi-Drug Resistant Organisms: None Reported Past Surgical History: Orthopedic Surgery Additional Past Surgical History / Comment(s): HIP SURGERY Past Anesthesia/Blood Transfusion Reactions: No Reported Reaction Past Psychological History: Anxiety Smoking Status: Never smoker Past Alcohol Use History: None Reported Past Drug Use History: None Reported - Past Family History Father History Unknown: Yes Medications and Allergies Home Medications Medication Instructions Recorded Confirmed Type Aspirin [Adult Low Dose Aspirin EC] 81 mg PO DAILY 11/15/17 07/04/20 History Donepezil [Aricept] 10 mg PO HS PRN 11/15/17 07/04/20 History Memantine [Namenda] 10 mg PO BID PRN 11/15/17 07/04/20 History Multivitamin [Multivitamins Adult 2 tab PO DAILY 11/15/17 07/04/20 History Gummies] Alendronate Sodium [Fosamax] 70 mg PO MO 07/04/20 07/04/20 History Calcium 1200mg/ Vitamin D 25mcg 1 tab PO DAILY 07/04/20 07/04/20 History Cyanocobalamin (Vitamin B-12) 1,000 mcg PO DAILY 07/04/20 07/04/20 History [Vitamin B-12] Allergies Allergy/AdvReac Type Severity Reaction Status Date / Time ciprofloxacin [From Cipro] Allergy Nausea & Verified 07/04/20 19:30 Vomiting Surgical - Exam Vital Signs Temp Pulse Resp BP Pulse Ox 94.4 F L 93 16 137/96 92 L 07/04/20 17:42 07/04/20 17:42 07/04/20 17:42 07/04/20 17:42 07/04/20 17:42 - General well developed, well nourished, no distress - Respiratory normal respiratory effort - Abdomen Abdomen: soft, non tender, no guarding, no rigid, no rebound - Psychiatric oriented to time, oriented to person, oriented to place, speech is normal, memory intact Results - Labs 07/06/20 04:58 07/06/20 04:58 Abnormal Lab Results - Last 24 Hours (Table) 07/05/20 07/06/20 Range/Units 05:00 04:58 RBC 3.69 L (3.80-5.40) m/uL Hgb 11.0 L (11.4-16.0) gm/dL Carbon Dioxide 18.0 L (21.6-31.8) mmol/L BUN 45.0 H (9.0-27.0) mg/dL Est GFR (CKD-EPI)AfAm 40.5 L (60.0-200.0) Est GFR (CKD-EPI)NonAf 34.9 L (60.0-200.0) BUN/Creatinine Ratio 32.14 H (12.00-20.00) Ratio Total Bilirubin 0.2 L (0.3-1.2) mg/dL Total Protein 6.1 L (6.2-8.2) g/dL Albumin 3.50 L (3.80-4.90) g/dL Albumin/Globulin Ratio 1.35 L (1.60-3.17) g/dL Microbiology - Last 24 Hours (Table) 07/04/20 19:04 Blood Culture - Preliminary Blood No Growth after 24 hours 07/04/20 19:04 Urine Culture - Preliminary Urine,Voided Gram Neg Bacilli Diabetes panel 07/05/20 Range/Units 05:00 Sodium 137 (135-145) mmol/L Potassium 4.7 (3.5-5.5) mmol/L Chloride 108 (96-109) mmol/L Carbon Dioxide 18.0 L (21.6-31.8) mmol/L BUN 45.0 H (9.0-27.0) mg/dL Creatinine 1.4 (0.6-1.5) mg/dL Glucose 77 (70-110) mg/dL Calcium 9.8 (8.7-10.3) mg/dL AST 25 (13-35) U/L ALT 22 (8-44) U/L Alkaline Phosphatase 71 (41-126) U/L Total Protein 6.1 L (6.2-8.2) g/dL Albumin 3.50 L (3.80-4.90) g/dL Calcium panel 07/05/20 Range/Units 05:00 Calcium 9.8 (8.7-10.3) mg/dL Albumin 3.50 L (3.80-4.90) g/dL Pituitary panel 07/05/20 Range/Units 05:00 Sodium 137 (135-145) mmol/L Potassium 4.7 (3.5-5.5) mmol/L Chloride 108 (96-109) mmol/L Carbon Dioxide 18.0 L (21.6-31.8) mmol/L BUN 45.0 H (9.0-27.0) mg/dL Creatinine 1.4 (0.6-1.5) mg/dL Glucose 77 (70-110) mg/dL Calcium 9.8 (8.7-10.3) mg/dL Adrenal panel 07/05/20 Range/Units 05:00 Sodium 137 (135-145) mmol/L Potassium 4.7 (3.5-5.5) mmol/L Chloride 108 (96-109) mmol/L Carbon Dioxide 18.0 L (21.6-31.8) mmol/L BUN 45.0 H (9.0-27.0) mg/dL Creatinine 1.4 (0.6-1.5) mg/dL Glucose 77 (70-110) mg/dL Calcium 9.8 (8.7-10.3) mg/dL Total Bilirubin 0.2 L (0.3-1.2) mg/dL AST 25 (13-35) U/L ALT 22 (8-44) U/L Alkaline Phosphatase 71 (41-126) U/L Total Protein 6.1 L (6.2-8.2) g/dL Albumin 3.50 L (3.80-4.90) g/dL Assessment and Plan (1) UTI (urinary tract infection) Current Visit: Yes Status: Acute Code(s): N39.0 - URINARY TRACT INFECTION, SITE NOT SPECIFIED SNOMED Code(s): 71368285 Plan: [place] catheter is in place, draining clear yellow urine. A preliminary urine culture shows gram-negative bacilli. She is currently receiving Rocephin, and this can be changed to an appropriate oral antibiotic once the urine culture was completed. I do not feel that any further urologic evaluation is warranted. Please notify me if we can be of any further assistance. Time with Patient: Less than 30
[2020-07-07 06:18] VITALS: TEMP 97.8
[2020-07-07 09:20] LABS: Basophils # (A) 0.08 X 10*3/uL (0.00-0.10); Basophils % (A) 0.7 %; Eosinophils # (A) 0.46 X 10*3/uL (0.04-0.35); Eosinophils % (A) 4.2 %; HGB 10.7 g/dL (12.0-15.0); Lymphocytes # (A) 1.87 X 10*3/uL (0.90-5.00); Lymphocytes % (A) 17.1 %; MCH 29.4 pg (27.0-32.0); MCHC 31.5 g/dL (32.0-37.0); MCV 93.4 fL (80.0-97.0); Mean Platelet Volume 9.6 fL (9.5-12.2); Monocytes # (A) 0.89 X 10*3/uL (0.20-1.00); Monocytes % (A) 8.1 %; Neutrophils # (A) 7.42 X 10*3/uL (1.80-7.70); Neutrophils % (A) 67.9 %; Platelet Count 270 X 10*3/uL (140-440); RBC 3.64 X 10*6/uL (4.10-5.20); WBC 10.94 X 10*3/uL (4.50-10.00)
[2020-07-07 09:51] LABS: Anion Gap 7.7 mmol/L (4.00-12.00); BUN/Creat Ratio 23.33 Ratio (12.00-20.00); Carbon Dioxide 22.3 mmol/L (21.6-31.8); Non-African American GFR(CKD) 59.5 (60.0-200.0); Potassium 4.2 mmol/L (3.5-5.5)
[2020-07-07 12:22] VITALS: BP 148/85; PULSE 71; RESP 16
--- NOTE | 2020-07-07 14:11 | P.DS ---
Providers Date of admission: 07/04/20 19:39 Expected date of discharge: 07/07/20 Attending physician: Elvis Herring MD Primary care physician: Jong Ramirez [facility] Course: This is a 84-year-old female with past medical history noted below who presented to the emergency room with altered mental status. Patient was evaluated in the ER and admitted to the hospital for further management of her medical problems noted below. Toxic metabolic encephalopathy in setting of UTI with underlying dementia, resolved back to baseline Complicated urinary tract infection with urine culture growing Proteus -Patient was started on IV ceftriaxone. She will finish antibiotic course with Keflex. Acute kidney injury -Resolved with IV fluid hydration and bladder decompression Obstructive uropathy -Patient had a [place] catheter inserted on presentation. On the day of discharge, [place] catheter was discontinued around 10 in the morning and in the afternoon BladderScan showed less than 50 mL of urine with no evidence of retention Hematuria -Secondary to traumatic [place] catheter insertion. Now resolved Hyponatremia -Improved with IV fluid hydration Patient will be discharged home in a stable condition. Her is her primary caregiver. He was advised to monitor the patient to make sure she is urinating and that she is at the risk of urinary retention again. She will follow-up with her PCP as directed. Patient Condition at Discharge: Stable Plan - Discharge Summary Discharge Rx Participant: Yes New Discharge Prescriptions: New Cephalexin [Keflex] 500 mg PO Q6HR 3 Days #12 cap Continue Memantine [Namenda] 10 mg PO BID PRN PRN Reason: DEMENTIA Donepezil [Aricept] 10 mg PO HS PRN PRN Reason: DEMENTIA Multivitamin [Multivitamins Adult Gummies] 2 tab PO DAILY Aspirin [Adult Low Dose Aspirin EC] 81 mg PO DAILY Calcium 1200mg/ Vitamin D 25mcg 1 tab PO DAILY Cyanocobalamin (Vitamin B-12) [Vitamin B-12] 1,000 mcg PO DAILY Alendronate Sodium [Fosamax] 70 mg PO MO Discharge Medication List Aspirin [Adult Low Dose Aspirin EC] 81 mg PO DAILY 11/15/17 [History] Donepezil [Aricept] 10 mg PO HS PRN 11/15/17 [History] Memantine [Namenda] 10 mg PO BID PRN 11/15/17 [History] Multivitamin [Multivitamins Adult Gummies] 2 tab PO DAILY 11/15/17 [History] Alendronate Sodium [Fosamax] 70 mg PO MO 07/04/20 [History] Calcium 1200mg/ Vitamin D 25mcg 1 tab PO DAILY 07/04/20 [History] Cyanocobalamin (Vitamin B-12) [Vitamin B-12] 1,000 mcg PO DAILY 07/04/20 [His tory] Cephalexin [Keflex] 500 mg PO Q6HR 3 Days #12 cap 07/07/20 [Rx] Follow up Appointment(s)/Referral(s): Jong Solo MD [Primary Care Provider] - 1-2 days Discharge Disposition: HOME SELF-CARE
== END 2020-07-07 16:30 | disposition home health service (06) ==
LOC: EC 17:39 → 5NMEDONC 19:39
PROVIDERS: ADMIT Internal Medicine; ATTEND Internal Medicine
DX: N39.0 Urinary tract infection, site not specified (principal); G92 Toxic encephalopathy; N17.9 Acute kidney failure, unspecified; N13.9 Obstructive and reflux uropathy, unspecified; T83.091A Other mechanical complication of indwelling urethral catheter, initial encounter; R31.9 Hematuria, unspecified; B96.4 Proteus (mirabilis) (morganii) as the cause of diseases classified elsewhere; F03.90 Unspecified dementia, unspecified severity, without behavioral disturbance, psychotic disturbance, mood disturbance, and anxiety; E87.5 Hyperkalemia; E86.0 Dehydration; E87.1 Hypo-osmolality and hyponatremia; E83.52 Hypercalcemia; R63.0 Anorexia; M19.90 Unspecified osteoarthritis, unspecified site; R33.9 Retention of urine, unspecified; I45.9 Conduction disorder, unspecified; F41.9 Anxiety disorder, unspecified; Z79.82 Long term (current) use of aspirin; Z79.83 Long term (current) use of bisphosphonates; Z79.899 Other long term (current) drug therapy; Z88.1 Allergy status to other antibiotic agents
CPT/HCPCS: 96361 ×3; 96365; 96372; 96375; 99285; 36415; 93005; 97162; 80053 ×2; 80048 ×2; 84443; 83605; 83735; 85025 ×4; 85610; 85730; 81001; 87040; 87086; 87077; 87186; 87635; 71046; G0378 ×4; J1644; J0696 ×3